=== PATIENT | male | born 1970 | race Caucasian/White ===

== ENCOUNTER 2022-03-15 22:36 | Emergency (ER) | payer MEDICAID ==
[2022-03-15] MEDS ORDERED: BACIGUENT PACKET ONE (22:46)
[2022-03-15 22:47] VITALS: BP 123/73; O2SAT 98
[2022-03-15] MEDS ORDERED: BACIGUENT PACKET TP ONE (22:53)
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
== END 2022-03-15 23:04 | disposition home or self-care (01) ==
LOC: ED 22:36
DX: T20.27XA Burn of second degree of neck, initial encounter (principal); X03.4XXA Hit by object due to controlled fire, not in building or structure, initial encounter; Z72.0 Tobacco use; Z28.310 Unvaccinated for COVID-19
CPT/HCPCS: 99281; A9270-GY